=== PATIENT | female | born 1980 | race Caucasian/White ===

== ENCOUNTER 2020-11-27 13:34 | Emergency (ER) | payer SELFPAY ==
--- NOTE | 2020-11-27 15:19 | ER Document Report ---
ED Medical Screen (RME) - General Stated Complaint: TROUBLE BREATHING/RASH Time Seen by Provider: 11/27/20 15:10 TRAVEL OUTSIDE OF THE [place] IN LAST 30 DAYS: No - HPI Patient complains to provider of: SOB RASH Notes: 11/27/20 15:17 Patient here with complaints of shortness of breath, body aches and rash. The patient states that she started feeling bad a week ago as well as several other family members. They were all tested for Covid and are all positive. The patient found out today that she is positive. She states that she feels short of breath with the smallest amount of exertion. She denies any chest pain. She also noticed a rash today. She denies hormone use, she denies leg swelling, she denies history of DVT or PE. Exam: No distress, nontoxic appearing. Lungs clear to go throughout. Tachycardia. Red macular rash to the abdomen. No petechiae, no vesicles. Rash blanches easily. An initial examination was made on the patient as part of the triage process, and it was determined a more comprehensive evaluation was necessary. Initial labs were ordered and patient was transferred to another provider in the ED who assumed care and finished evaluation and plan. - Related Data Allergies/Adverse Reactions: ibuprofen Allergy (Severe, Verified 06/01/15 10:14) Renal failure NSAIDS (Non-Steroidal Anti-Inflamma [Nsaids] Adverse Reaction (Severe, Verified 05/31/15 14:09) elevated kidney function,kidney shut down Past Medical History - Past Medical History Cardiac Medical History: Reports: Hx Hypertension - meds x 4 yrs Denies: Hx Coronary Artery Disease, Hx Heart Attack Pulmonary Medical History: Denies: Hx Asthma, Hx Bronchitis, Hx COPD, Hx Pneumonia Neurological Medical History: Denies: Hx Cerebrovascular Accident, Hx Seizures Musculoskeltal Medical History: Denies Hx Arthritis Past Surgical History: Reports: Hx Cholecystectomy, Hx Oral Surgery - Immunizations Hx Diphtheria, Pertussis, Tetanus Vaccination: Yes Physical Exam - Vital signs Vitals: Temp Pulse Resp BP Pulse Ox 99.2 F 123 H 18 126/84 H 100 11/27/20 14:07 11/27/20 14:07 11/27/20 14:07 11/27/20 14:07 11/27/20 14:07 Course - Vital Signs Vital signs: Temp Pulse Resp BP Pulse Ox 99.2 F 123 H 18 126/84 H 100 11/27/20 14:07 11/27/20 14:07 11/27/20 14:07 11/27/20 14:07 11/27/20 14:07
[2020-11-27 19:13] LABS: ABSOLUTE LYMPHOCYTES (AUTO) 1.3 10^3/uL (0.5-4.7); ABSOLUTE MONOCYTES (AUTO) 0.8 10^3/uL (0.1-1.4); BASOPHILS % (AUTO) 0.1 % (0-2); HEMATOCRIT 43.5 % (36.0-47.0); HEMOGLOBIN 14.9 g/dL (12.0-15.5); LYMPHOCYTES % (AUTO) 11.8 % (13-45); MEAN CORPUSCULAR HEMOGLOBIN 29.6 pg (27.0-33.4); MEAN CORPUSCULAR HGB CONC 34.2 g/dL (32.0-36.0); MEAN CORPUSCULAR VOLUME 87 fl (80-97); MONOCYTES % (AUTO) 7.2 % (3-13); PLATELET COUNT 277 10^3/uL (150-450); RED BLOOD COUNT 5.03 10^6/uL (3.72-5.28); RED CELL DISTRIBUTION WIDTH 14.3 % (11.5-14.0); SEGMENTED NEUTROPHILS % (AUTO) 80.9 % (42-78); TOTAL CELLS COUNTED % (AUTO) 100 %; WHITE BLOOD COUNT 11.1 10^3/uL (4.0-10.5)
[2020-11-27 19:33] LABS: ALBUMIN 4.2 g/dL (3.5-5.0); ALKALINE PHOSPHATASE 64 U/L (38-126); ANION GAP 10 (5-19); ASPARTATE AMINO TRANSFERASE 33 U/L (14-36); BILIRUBIN,DIRECT 0.3 mg/dL (0.0-0.4); BILIRUBIN,TOTAL 0.6 mg/dL (0.2-1.3); BLOOD UREA NITROGEN 17 mg/dL (7-20); CALCIUM 9.3 mg/dL (8.4-10.2); CARBON DIOXIDE 28 mmol/L (22-30); CHLORIDE 98 mmol/L (98-107); GLUCOSE 106 mg/dL (75-110); POTASSIUM 4.4 mmol/L (3.6-5.0); TOTAL PROTEIN 7.8 g/dL (6.3-8.2)
[2020-11-27 19:45] LABS: NT PRO BNP 22 pg/mL (<125); TROPONIN I < 0.012 ng/mL
--- NOTE | 2020-11-27 19:55 | RADIOLOGY REPORT (SQ) ---
EXAM DESCRIPTION: CHEST SINGLE VIEW IMAGES COMPLETED DATE/TIME: 11/27/2020 7:46 pm REASON FOR STUDY: fever COMPARISON: None. EXAM PARAMETERS: NUMBER OF VIEWS: One view. TECHNIQUE: Single frontal radiographic view of the chest acquired. RADIATION DOSE: NA LIMITATIONS: None. FINDINGS: LUNGS AND PLEURA: No opacities, masses or pneumothorax. No pleural effusion. MEDIASTINUM AND HILAR STRUCTURES: No masses. Contour normal. HEART AND VASCULAR STRUCTURES: Heart normal in size. Normal vasculature. BONES: No acute findings. HARDWARE: None in the chest. OTHER: No other significant finding. IMPRESSION: NO ACUTE RADIOGRAPHIC FINDING IN THE CHEST. TECHNICAL DOCUMENTATION: JOB ID: [id number] [employer]- All Rights Reserved Reading location - IP/workstation name: [email or web address]
[2020-11-27] MEDS ORDERED: ONDANSETRON HCL INJ/PF 4 MG/2 ML SDV IV ONE (20:22)
[2020-11-27] MEDS ORDERED: FENTANYL CITRATE INJ/PF 100 MCG/2 ML AMPUL IV ONE (20:22)
--- NOTE | 2020-11-27 20:50 | ER Document Report ---
Entered by JONATHAN VILLATORO SCRIBE 11/27/201920 Acting as scribe for:RAMU HANKINS, DO ED General - General Chief Complaint: Shortness Of Breath Stated Complaint: TROUBLE BREATHING/RASH Time Seen by Provider: 11/27/20 15:10 Primary Care Provider: ELI ESQUIVEL MD [Primary Care Provider] - Follow up as needed Mode of Arrival: Ambulatory Information source: Patient Notes: This 40 year old female patient presents to the emergency department today with complaints of generalized body aches, fevers, non-productive cough, and diarrhea. She reports that all of these symptoms began one week ago and she was called today and was told a COVID-19 swab obtained a few days ago came back positive. Patient's son and also were tested that day and they all were positive as well. TRAVEL OUTSIDE OF THE [place] IN LAST 30 DAYS: No - Related Data Allergies/Adverse Reactions: ibuprofen Allergy (Severe, Verified 11/27/20 18:59) Renal failure NSAIDS (Non-Steroidal Anti-Inflamma [Nsaids] Adverse Reaction (Severe, Verified 11/27/20 18:59) elevated kidney function,kidney shut down Home Medications: albuterol inhaler/ z-pack finished yesterday/ prednisone curently on day 6/ lisinopril HCTZ 20/25 and lisinporil/ metformin 500 zertec Past Medical History - General Information source: Patient - Social History Smoking Status: Never Smoker Cigarette use (# per day): No Chew tobacco use (# tins/day): No Frequency of alcohol use: None Drug Abuse: None Lives with: Family Family History: Reviewed & Not Pertinent - Past Medical History Cardiac Medical History: Reports: Hx Hypertension Past Surgical History: Reports: Hx Cholecystectomy, Hx Oral Surgery - Immunizations Hx Diphtheria, Pertussis, Tetanus Vaccination: Yes Review of Systems - Review of Systems Constitutional: See HPI, Fever, Other - poor appetite EENT: No symptoms reported Cardiovascular: No symptoms reported Respiratory: See HPI, Cough Gastrointestinal: See HPI, Diarrhea Genitourinary: No symptoms reported Female Genitourinary: See HPI, Irregular period - 2 years ago Musculoskeletal: See HPI, Muscle pain Skin: No symptoms reported Hematologic/Lymphatic: No symptoms reported Neurological/Psychological: No symptoms reported -: Yes All other systems reviewed and negative Physical Exam - Vital signs Vitals: Temp Pulse Resp BP Pulse Ox 99.2 F 123 H 18 126/84 H 100 11/27/20 14:07 11/27/20 14:07 11/27/20 14:07 11/27/20 14:07 11/27/20 14:07 - Notes Notes: Physical Exam: General: Alert, appears well. HEENT: Normocephalic. Atraumatic. PERRL. Extraocular movements intact. Oropharynx clear. Neck: Supple. Non-tender. Respiratory: No respiratory distress. Diminished in the bases bilaterally. Cardiovascular: Regular rate and rhythm. Abdominal: Obese. Non-tender. No distension. Normal Bowel Sounds. Back: No gross abnormalities. Extremities: Moves all four extremities. Upper extremities: Normal inspection. Normal ROM. Lower extremities: Normal inspection. No edema. Normal ROM. Neurological: Normal cognition. AAOx4. Normal speech. Psychological: Normal affect. Normal Mood. Skin: Warm. Dry. Normal color. Course - Re-evaluation Re-evalutation: 11/27/20 22:01 MDM 40 year old female arrives with Covid 19. She has cough and sob and fever. Family members - son and - are currently being treated for the same. She is the worst of them. Nontoxic here. She feels just a bit better perhaps after treatment. We discussed treatment, follow up and return precautions and she expressed understanding. - Vital Signs Vital signs: Temp Pulse Resp BP Pulse Ox 100.2 F 100 16 116/76 96 11/27/20 21:50 11/27/20 21:50 11/27/20 21:50 11/27/20 21:50 11/27/20 21:50 - Laboratory Results Result Diagrams: 11/27/20 18:50 11/27/20 18:50 Laboratory Results Interpreted: 11/27/20 11/27/20 11/27/20 18:50 18:50 18:59 WBC 11.1 H RDW 14.3 H Lymph % (Auto) 11.8 L Absolute Neuts (auto) 9.0 H Seg Neutrophils % 80.9 H Sodium 135.8 L ALT 44 H C-Reactive Protein 23.6 H Critical Laboratory Results Reviewed: No Critical Results - Radiology Results Critical Radiology Results Reviewed: No Critical Results Discharge - Discharge Clinical Impression: COVID-19 Condition: Stable Disposition: HOME, SELF-CARE Instructions: COVID-19 Guidance for Persons Under Investigation, Pneumonia ([facility]) Additional Instructions: Rest, Plenty of fluids including chicken soup. Take 2 baby aspirin daily. Take 1 gram of vitamin c and 50 mg zinc daily. Finish the antibiotic. Please return here for chest pain, shortness of breath, fever, or other problems or other concerns. Take tylenol or ibuprofen for fever and muscle aches. Medicine has been sent to [facility]. Prescriptions: Dexamethasone [Decadron] 6 mg PO DAILY #17 tablet Zinc [Zinc Chelated] 50 mg PO DAILY #14 tablet Referrals: ELI ESQUIVEL MD [Primary Care Provider] - Follow up as needed I personally performed the services described in the documentation, reviewed and edited the documentation which was dictated to the scribe in my presence, and it accurately records my words and actions.
--- NOTE | 2020-11-27 21:02 | RADIOLOGY REPORT (SQ) ---
EXAM DESCRIPTION: CTA CHEST CLINICAL HISTORY: 40 years Female; COVID +, SOB, Tachycardia TECHNIQUE: CT angiogram of the chest using intravenous contrast.. MIP reconstructions were performed. All CT scans at this facility use dose modulation, iterative reconstruction, and/or weight based dosing when appropriate to reduce radiation dose to as low as reasonably achievable. COMPARISON: None. FINDINGS: Chest: Vascular: Exam is of diagnostic quality. There is no evidence of pulmonary embolization bilaterally. Facet aorta is of normal caliber. No aneurysm or dissection. Lungs: There is subtle, nodular, peripheral groundglass infiltrate seen predominantly in the perihilar and the lower lobes bilaterally. No pneumothorax. No pleural effusion. No pulmonary nodules. No masses. Mediastinum: Heart size is within normal limits. No significant mediastinal or hilar lymphadenopathy. Visualized portion of the thyroid gland is normal. Bones and soft tissues: There is mild endplate spondylosis in the thoracic spine. No destructive bone lesions. Soft tissues of the chest wall are unremarkable. Upper Abdomen: Gallbladder is surgically absent. IMPRESSION: 1. No evidence of pulmonary embolization. 2. Subtle, peripheral nodular perihilar and lower lobe infiltrate bilaterally. This is predominantly ground glass. Commonly reported imaging features of COVID pneumonia are present. Other processes such as influenza pneumonia and organizing pneumonia, as can be seen with drug toxicity and connective tissue disease, can cause similar imaging pattern. [PneTyp]
[2020-11-27] MEDS ORDERED: DEXAMETHASONE SOD PHOSPHATE INJ 4 MG/1 ML VIAL IV ONE (21:45)
[2020-11-27] MEDS ORDERED: ACETAMINOPHEN 325 MG TABLET PO ONE (22:04)
[2020-11-27 23:21] VITALS: BP 108/65
--- NOTE | 2020-11-28 10:29 | EKG REPORT ---
SEVERITY:- OTHERWISE NORMAL ECG - SINUS TACHYCARDIA BORDERLINE LEFT AXIS DEVIATION : Confirmed by: Benita Hyde 28-Nov-2020 10:28:32
== END 2020-11-27 23:05 | disposition home or self-care (01) ==
LOC: ER 13:34
DX: U07.1 COVID-19 (principal); R06.02 Shortness of breath; R21 Rash and other nonspecific skin eruption; M79.10 Myalgia, unspecified site; R50.9 Fever, unspecified; R05 Cough; R19.7 Diarrhea, unspecified; Z79.899 Other long term (current) drug therapy; Z79.84 Long term (current) use of oral hypoglycemic drugs; I10 Essential (primary) hypertension
CPT/HCPCS: 93005; 99285; 96374; 96375; 36415; 85025; 86140; 80053; 84484; 85379; 83880; 71045; 71275; 93010; J1100; J3010; J2405